=== PATIENT | female | born 1965 | race Caucasian/White ===

== ENCOUNTER 2016-04-05 19:04 | Emergency (ER) | payer OTHER ==
[~2016-04-05] VITALS: Ht 157.5 cm; Wt 120.0 kg
[2016-04-05 19:17] VITALS: BP 151/96; PULSE 96; TEMP 36.9; O2SAT 95; Ht 157.5 cm; Wt 120.0 kg
[2016-04-05] MEDS ORDERED: DOXYCYCLINE HYCLATE 100 MG CAP PO STA (19:58)
[2016-04-05] MEDS ORDERED: CEPHALEXIN 500MG HOME PACK 1 EA BTL PO ONE (20:00)
[2016-04-05] MEDS ORDERED: CEPHALEXIN MONOHYDRATE 250 MG CAP PO ONE (20:00)
[2016-04-05] MEDS ORDERED: DOXY100T17 PO (20:02)
[2016-04-05] MEDS ORDERED: CEPH500C2 PO (20:02)
--- NOTE | 2016-04-05 20:03 | EMERGENCY ROOM VISIT NOTE ---
History Report prepared by Dedrickibcassi: Nicki Orantes Under the Supervision of: Dr. Tyler Neal D.O. First contact with patient: 19:44 Chief Complaint: FEVER Stated Complaint: REDNESS/SWELLING,HOT ANKLE,SORENESS, FEVER History of Present Illness The patient is a 50 year old female who presents to the Emergency Room with complaints of worsening pain and swelling to her right foot and ankle. She states she started noticing the swelling approximately 2 days ago after grocery shopping. She reports her feet are really dry and cracked. She has been given cream to use on them in the past, but states "it does nothing". She notes she had a fever 2 days ago, but thinks it has resolved. She states the foot and ankle is red and painful to the touch, rating her discomfort as a 2/10. She denies any numbness in the foot or ankle. The patient denies any history of cellulitis. She has a history of hypertension, a previous AK and her reports she has had 2 cardiac stents placed in the past. 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 A total of 10 systems reviewed and were otherwise negative. Past Medical & Surgical Medical Problems: (1) Hypertension (2) Myocardial infarction Social History Smoking Status: Former Smoker Alcohol Use: occasionally Drug Use: none Marital Status: Housing Status: lives with family Occupation Status: employed Current/Historical Medications Scheduled Cephalexin Monohydrate (Keflex), 500 MG PO QID Doxycycline (Monohydrate) (Doxycycline Monohydrate), 100 MG PO BID Allergies Coded Allergies: Acetaminophen (Verified Allergy, Intermediate, Weakness, 04/05/16) Clindamycin (Verified Allergy, Intermediate, Diarrhea, 04/05/16) Oxycodone (Verified Allergy, Intermediate, Weakness, 04/05/16) Penicillins (Verified Allergy, Intermediate, N/v, 04/05/16) Sulfa Antibiotics (Verified Allergy, Intermediate, Rash, fever, 04/05/16) Uncoded Allergies: DEMEROL (Allergy, Mild, Itchy, 04/05/16) Physical Exam Vital Signs Date Time Temp Pulse Resp B/P Pulse Ox O2 Delivery O2 Flow Rate FiO2 2/5/17 19:17 36.9 96 18 151/96 95 Room Air Physical Exam GENERAL: Patient is awake, alert, in no acute distress, patient is resting comfortably and showing no signs of anxiety EYES: The conjunctivae are clear. The pupils are round and reactive. EARS, NOSE, MOUTH AND THROAT: The nose is without any evidence of any deformity. Mucous membranes are moist tongue is midline NECK: The neck is nontender and supple. RESPIRATORY: Normal respiratory effort is noted there is no evidence of wheezing rhonchi or rales CARDIOVASCULAR: Regular rate and rhythm noted there no murmurs rubs or gallops normal S1 normal S2 GASTROINTESTINAL: The abdomen is soft. Bowel sounds are present in all quadrants. Abdomen is nontender MUSCULOSKELETAL/EXTREMITIES: There is no evidence of gross deformity full range of motion is noted in the hips and shoulders SKIN: Erythema on medial aspect of right lower leg, non-circumferential, area had the appearance of cellulitis, skin is warm and dry, appearance of tinea infection in the feet. NEUROLOGIC: Patient is awake alert and oriented x3 Medical Decision & Procedures Medications Administered Medications (Trade) Dose Ordered Sig/Kar Route Start Time Stop Time Status Last Admin Dose Admin Cephalexin Monohydrate (Keflex 500MG Home Pack) 1 homepack NOW ONCE PO 04/05/16 20:00 04/05/16 20:01 DC 04/05/16 20:18 1 HOMEPACK Cephalexin Monohydrate (Keflex Cap) 500 mg NOW ONCE PO 04/05/16 20:00 04/05/16 20:01 DC 04/05/16 20:18 500 MG Doxycycline Hyclate (Vibramycin Cap) 100 mg NOW STAT PO 04/05/16 19:58 04/05/16 19:59 DC 04/05/16 20:18 100 MG ED Course 1952: The patient was evaluated in room C12. A complete history and physical examination were performed. 1957: Vibramycin 100 mg PO. 1999: Keflex Cap 500 mg PO, Keflex 500 mg 1 homepack PO. 2009: I reevaluated the patient. She is feeling well and ready to go home. I discussed her discharge instructions and she verbalized complete understanding and agreement. Medical Decision Prior records reviewed and summarized as above. Triage Nursing notes reviewed. The patient's history was concerning for swelling and redness of the skin. Differential diagnosis: Etiologies such as cellulitis, abscess, MRSA infection, DVT, necrotizing fasciitis, dermatitis, drug eruption, as well as others were entertained. The patient is a 50-year-old female who presented to the emergency department for an evaluation of right lower extremity cellulitis. The patient had what appeared to be cellulitis on the medial aspect of her right leg. She has extensive tinea infection right foot. At this time I feel that this represents non-complicated cellulitis. She was started on antibiotics emergency department. She was encouraged to follow-up with her primary care physician as soon as possible. She was also encouraged to continue all medications as prescribed. She was also encouraged to return to emergency department immediately if symptoms change worsen or the need arises. Impression Primary Impression: Cellulitis of right lower extremity Additional Impression: Tinea pedis Scribe Attestation The scribe's documentation has been prepared under my direction and personally reviewed by me in its entirety. I confirm that the note above accurately reflects all work, treatment, procedures, and medical decision making performed by me. Departure Information Dispostion Home / Self-Care Prescriptions Cephalexin Monohydrate (KEFLEX) 500 Mg Cap 500 MG PO QID, #40 CAP Prov: Tyler Neal, DO 04/05/16 Doxycycline (Monohydrate) (DOXYCYCLINE MONOHYDRATE) 100 Mg Tab 100 MG PO BID, #20 TABS Prov: Tyler Neal, DO 04/05/16 Referrals No Doctor, Assigned (PCP) Patient Instructions Cellulitis Dc, ED Fungal Infec Athlete Foot, [facility] Additional Instructions Call your family to schedule follow-up appointment. Continue all medications as prescribed. Continue using medications to treat the fungal infection in her feet as discussed. Problem Qualifiers
== END 2016-04-05 20:27 | disposition home or self-care (01) ==
LOC: C.EDB 19:07 → C.EDC 20:27
DX: L03.115 Cellulitis of right lower limb (principal); B35.3 Tinea pedis; I10 Essential (primary) hypertension; I25.2 Old myocardial infarction; Z87.891 Personal history of nicotine dependence; Z88.0 Allergy status to penicillin; Z88.2 Allergy status to sulfonamides; Z88.3 Allergy status to other anti-infective agents; Z88.5 Allergy status to narcotic agent; Z88.6 Allergy status to analgesic agent